=== PATIENT | male | born 1955 | race Caucasian/White ===

== ENCOUNTER 2023-05-31 13:53 | Observation (INO) ==
[~2023-05-31 13:53] MED LIST: NS IRRIGATION* 3,000 ML ONE
--- NOTE | 2023-05-31 15:46 | DR.GENAD ---
HPI Time Seen Time Seen by Provider: 05/31/23 15:44 Complaint/Symptoms Chief Complaint Doctors Comments: Patient stated that he had had some right upper quadrant pain and his primary care provider in [place] had him to get ultrasound of his right upper quadrant today and was found to have Lizbeth lithia sis and cholecystitis and was told to come to the emergency room for further evaluation treatment PMH PMH Past Medical History: Hypertension Past Surgical History: Yes Surgical History: Joint Replacement Family History Family Medical History: Hypertension Social History Do you use any recreational Drugs:: No ROS Review of Systems Constitutional: Other (Right upper quadrant pain) Eyes: No Symptoms Reported ENTM: No Symptoms Reported Respiratoy: No Symptoms Reported Gastrointestinal/Abdominal: Abdominal Pain Genitourinary: No Symptoms Reported Neurological: No Symptoms Reported Musculoskeletal: No Symptoms Reported Integumentary: No Symptoms Reported Hematologic/Lymphatic: No Symptoms Reported Endocrine: No Symptoms Reported Psychiatric: No Symptoms Reported PE Vital Signs Vitals: Vital Signs Blood Pressure 119/67 Blood Pressure 120/71 Blood Pressure 133/82 Blood Pressure 111/59 General Limitations: No Limitations General Appearance: In Distress (mild distress) Head Head Exam: Normal Inspection, Atraumatic and Normocephalic Eyes Eye exam: Normal Appearance and PERRL ENT ENT Exam: Normal Exam, Normal Oropharynx and Normal External Ear Exam External Ear Exam: Normal External Inspection TM/Canal Exam: Bilateral: Normal Nose Exam: Normal Nose Exam Mouth Exam: Normal Inspection Throat Exam: Normal Inspection Neck Neck Exam: Normal Inspection Chest Chest Inspection: Normal Inspection and Symmetric Chest Wall Rise Respiratory Respiratory Exam: Normal Lung Sounds Bilat Respiratory Exam: Bilateral: Clear to Auscultation Cardiovascular Cardiovascular Exam: Regular Rate Abdominal Exam Abdominal Exam: Normal Inspection and Normal Bowel Sounds Abdominal Tenderness: RUQ Extremities Extremities Exam: Normal Inspection Back Back Exam: Normal Inspection Neurologic Neurological Exam: Alert, Oriented X3 and CN II-XII Intact Psychiatric Psychiatric Exam: Normal Affect and Normal Mood Skin Skin Exam: Warm, Dry and Intact MDM Differential Diagnosis Differential Diagnosis: Cholelithiasis, cholecystitis COURSE Treatment Treatment: Patient had ultrasound of the right upper quadrant today which showed cholelithiasis and cholecystitis. Advised by his primary care provider to go to the ER for further evaluation and treatment. We did call the on-call medical to [place] and he was aware that we had our also going to call Dr. Maria to admit this patient for possible cholecystectomy. We were able to contact Dr. Stapleton and 2021 and he states we could contact Dr. Maria and we were able to contact Dr. Maria at 2054 and he stated to help Dr. Stapleton monitor the patient and make the patient n.p.o. give him Zosyn 3.375 mg IV and make him n.p.o. Dr. Maria will see the patient in the a.m. The patient was made aware of the intent and was agreeable to the intent. [facility]OR Labs Reviewed Laboratory Results Reviewed?: Yes 05/31/23 16:13 05/31/23 16:13 Laboratory: WBC 9.1 X10^3/uL (3.6-10.0) 05/31/23 16:13 RBC 4.02 X10^6/uL (4.7-6.0) L 05/31/23 16:13 Hgb 12.0 g/dL (13.5-18.0) L 05/31/23 16:13 Hct 35.5 % (42.0-54.0) L 05/31/23 16:13 MCV 88.5 fL (80.0-100.0) 05/31/23 16:13 MCH 29.9 pg (27.0-34.0) 05/31/23 16:13 MCHC 33.8 g/dL (33.0-35.0) 05/31/23 16:13 RDW 13.4 % (11.6-16.5) 05/31/23 16:13 Plt Count 355 X10^3/uL (150.0-450.0) 05/31/23 16:13 MPV 7.4 fL (7.4-11.0) 05/31/23 16:13 Neut % (Auto) 60.0 % (42.0-75.0) 05/31/23 16:13 Lymph % (Auto) 26.7 % (21.0-51.0) 05/31/23 16:13 [place] % (Auto) 11.7 % (0.0-13.0) 05/31/23 16:13 Eos % (Auto) 0.6 % (0.9-2.9) L 05/31/23 16:13 Baso % (Auto) 1.0 % (0.2-1.0) 05/31/23 16:13 Neut # (Auto) 5.5 x10^3/uL (2.2-4.8) H 05/31/23 16:13 Lymph # (Auto) 2.4 X10^3/uL (1.3-2.9) 05/31/23 16:13 [place] # (Auto) 1.1 x10^3/uL (0.3-0.8) H 05/31/23 16:13 Eos # (Auto) 0.1 x10^3/uL (0.0-0.2) 05/31/23 16:13 Baso # (Auto) 0.1 X10^3/uL (0.0-0.1) 05/31/23 16:13 Absolute Nucleated RBC 0.1 /100WBC 05/31/23 16:13 Sodium 132 mmol/L (136-145) L 05/31/23 16:13 Corrected Sodium TNP 05/31/23 16:13 Potassium 3.0 mmol/L (3.5-5.1) L 05/31/23 16:13 Chloride 96 mmol/L (98-107) L 05/31/23 16:13 Carbon Dioxide 30.8 mmol/L (21-32) 05/31/23 16:13 BUN 18 mg/dL (7-18) 05/31/23 16:13 Creatinine 1.37 mg/dL (0.70-1.30) H 05/31/23 16:13 Est GFR (MDRD) Af Amer > 60 (>60) 05/31/23 16:13 Est GFR (MDRD) Non-Af 55 (>60) L 05/31/23 16:13 Glucose 93 mg/dL (65-99) 05/31/23 16:13 Calcium 8.3 mg/dL (8.5-10.1) L 05/31/23 16:13 Corrected Calcium 9.7 mg/dL (8.5-10.1) 05/31/23 16:13 Total Bilirubin 0.50 mg/dL (0.2-1.0) 05/31/23 16:13 AST 43 Units/L (15-37) H 05/31/23 16:13 ALT 71 Units/L (12-78) 05/31/23 16:13 Alkaline Phosphatase 223 Units/L (46-116) H 05/31/23 16:13 Total Protein 7.0 g/dL (6.4-8.2) 05/31/23 16:13 Albumin 2.3 g/dL (3.4-5.0) L 05/31/23 16:13 Globulin 4.7 g/dL (2.5-4.5) H 05/31/23 16:13 Albumin/Globulin Ratio 0.5 Ratio (1.1-2.1) L 05/31/23 16:13 Amylase 280 Units/L (25-115) H 05/31/23 16:13 Lipase 658 Units/L (16-77) H 05/31/23 16:13 Specimen Type Clean catch urine 05/31/23 15:27 Urine Color Yellow (YELLOW) 05/31/23 15:27 Urine Appearance Clear (CLEAR) 05/31/23 15:27 Urine pH 6.0 (5.0 - 8.0) 05/31/23 15:27 Ur Specific [place] 1.020 (1.000-1.030) 05/31/23 15:27 Urine Protein 2+ (NEGATIVE) 05/31/23 15:27 Urine Glucose (UA) Negative (NEGATIVE) 05/31/23 15:27 Urine Ketones Negative (NEGATIVE) 05/31/23 15:27 Urine Blood Negative (NEGATIVE) 05/31/23 15:27 Urine Nitrite Negative (NEGATIVE) 05/31/23 15:27 Urine Bilirubin Negative (NEGATIVE) 05/31/23 15:27 Urine Urobilinogen Normal (NORMAL) 05/31/23 15:27 Ur Leukocyte Esterase Negative (NEGATIVE) 05/31/23 15:27 Urine RBC 0-2 /HPF (0-3) 05/31/23 15:27 Urine WBC 0-2 /HPF (0-5) 05/31/23 15:27 Ur Squamous Epith Cells Rare /HPF (NEGATIVE) 05/31/23 15:27 Urine Bacteria 1+ /HPF (NEGATIVE) 05/31/23 15:27 Urine Mucus Numerous /HPF (NEGATIVE) 05/31/23 15:27 Ur Culture Indicated? No/not indicated 05/31/23 15:27 Opioid Opioid Risk Tool Age (David box if 16-45): No History of Preadolescent Sexual Abuse: No Total: 0 Total Score Risk Category: Low Risk Copyright: Truman BLACK predicting aberrant behaviors Discharge Plan Diagnosis Discharge Problem: Acute cholecystitis, Cholelithiasis Discharge Plan Patient Disposition: ADMITTED INPATIENT Condition: Stable Prescriptions: No Action lisinopril 20 mg tablet 20 mg PO BID Health Concerns: Post Hospitalization: new medications and changes needed to prevent readmission or further decline. Pt educated and given instructions on all concerns. Plan of Treatment: Continue with present treatment and follow up plan. Pt is to keep follow up appointment as instructed and take medications as ordered. Orders to Discharge Patient Discharge Orders: Transfer (Routine); Ordered 05/31/23 Ordered By: Javon Brooke Follow ups/Referrals Follow ups/Referrals: JAEL GASTON [Primary Care Provider] - 3 days Instructions Stand Alone Forms: Post Hospital Follow Up Care
[2023-05-31 16:06] LABS: BILIRUBIN,URINE NEGATIVE (NEGATIVE); BLOOD/HEMOGLOBIN,URINE NEGATIVE (NEGATIVE); GLUCOSE, URINE NEGATIVE (NEGATIVE); KETONES,URINE NEGATIVE (NEGATIVE); LEUKOCYTE ESTERASE ,URINE NEGATIVE (NEGATIVE); NITRITES,URINE NEGATIVE (NEGATIVE); PROTEIN,URINE 2+ (NEGATIVE); UROBILINOGEN,URINE NORMAL (NORMAL)
[2023-05-31 16:08] LABS: COLOR,URINE YELLOW (YELLOW)
[2023-05-31 16:09] LABS: APPEARANCE,URINE CLEAR (CLEAR)
[2023-05-31 16:21] LABS: BACTERIA,URINE 1+ /HPF (NEGATIVE); RBC,URINE 0-2 /HPF (0-3); SQUAMOUS EPITHELIAL CELL,UR RARE /HPF (NEGATIVE)
[2023-05-31 16:24] LABS: BASOPHILS # (AUTO) 0.1 X10^3/uL (0.0-0.1); EOSINOPHILS # (AUTO) 0.1 x10^3/uL (0.0-0.2); EOSINOPHILS % (AUTO) 0.6 % (0.9-2.9); HEMATOCRIT 35.5 % (42.0-54.0); LYMPHOCYTES # (AUTO) 2.4 X10^3/uL (1.3-2.9); LYMPHOCYTES % (AUTO) 26.7 % (21.0-51.0); MEAN CORPUSCULAR HEMOGLOBIN 29.9 pg (27.0-34.0); MEAN CORPUSCULAR HGB CONC 33.8 g/dL (33.0-35.0); MEAN CORPUSCULAR VOLUME 88.5 fL (80.0-100.0); MEAN PLATELET VOLUME 7.4 fL (7.4-11.0); MONOCYTES # (AUTO) 1.1 x10^3/uL (0.3-0.8); MONOCYTES % (AUTO) 11.7 % (0.0-13.0); NEUTROPHILS # (AUTO) 5.5 x10^3/uL (2.2-4.8); PLATELET COUNT 355 X10^3/uL (150.0-450.0); RED BLOOD COUNT 4.02 X10^6/uL (4.7-6.0); RED CELL DISTRIBUTION WIDTH 13.4 % (11.6-16.5); WHITE BLOOD COUNT 9.1 X10^3/uL (3.6-10.0)
[2023-05-31 16:37] LABS: ALANINE AMINOTRANSFERASE 71 Units/L (12-78); ALBUMIN 2.3 g/dL (3.4-5.0); ALKALINE PHOSPHATASE 223 Units/L (46-116); AMYLASE 280 Units/L (25-115); ASPARTATE AMINO TRANSFERASE 43 Units/L (15-37); BLOOD UREA NITROGEN 18 mg/dL (7-18); CALCIUM 8.3 mg/dL (8.5-10.1); CARBON DIOXIDE 30.8 mmol/L (21-32); CHLORIDE 96 mmol/L (98-107); COR CA(FOR HYPOALB) 9.7 mg/dL (8.5-10.1); CREATININE 1.37 mg/dL (0.70-1.30); GLUCOSE 93 mg/dL (65-99); SODIUM 132 mmol/L (136-145); eGFR NON BLACK RACES 55 (>60)
[2023-05-31 16:48] LABS: LIPASE 658 Units/L (16-77)
[2023-05-31] MEDS ORDERED: NS 100 ML IV 100 ML ONE (21:23)
[2023-05-31] MEDS ORDERED: ZOSYN VIAL 3.375 GRAMS IV ONE (21:23)
[2023-05-31] MEDS: ZOSYN VIAL 3.375 GRAMS 3.375 G in NS 100 ML IV 100 ML IV ONE (21:50)
[2023-05-31] MEDS: ZOSYN VIAL 3.375 GRAMS 3.375 G in NS 100 ML IV 100 ML IV SCH (21:51)
[2023-06-01 00:43] VITALS: BMI 23.6
[2023-06-01] MEDS: ZOSYN VIAL 3.375 GRAMS 3.375 G in NS 100 ML IV 100 ML IV SCH (05:11)
[2023-06-01 06:11] LABS: BASOPHILS % (AUTO) 0.5 % (0.2-1.0); EOSINOPHILS # (AUTO) 0.1 x10^3/uL (0.0-0.2); EOSINOPHILS % (AUTO) 0.7 % (0.9-2.9); HEMATOCRIT 35.1 % (42.0-54.0); HEMOGLOBIN 11.8 g/dL (13.5-18.0); LYMPHOCYTES # (AUTO) 1.3 X10^3/uL (1.3-2.9); LYMPHOCYTES % (AUTO) 15.1 % (21.0-51.0); MEAN CORPUSCULAR HEMOGLOBIN 29.4 pg (27.0-34.0); MEAN CORPUSCULAR HGB CONC 33.5 g/dL (33.0-35.0); MEAN CORPUSCULAR VOLUME 87.8 fL (80.0-100.0); MEAN PLATELET VOLUME 7.8 fL (7.4-11.0); MONOCYTES # (AUTO) 0.9 x10^3/uL (0.3-0.8); MONOCYTES % (AUTO) 10.6 % (0.0-13.0); NEUTROPHILS # (AUTO) 6.3 x10^3/uL (2.2-4.8); NEUTROPHILS % (AUTO) 73.1 % (42.0-75.0); PLATELET COUNT 389 X10^3/uL (150.0-450.0); RED CELL DISTRIBUTION WIDTH 13.1 % (11.6-16.5); WHITE BLOOD COUNT 8.7 X10^3/uL (3.6-10.0)
[2023-06-01 06:25] LABS: ALANINE AMINOTRANSFERASE 59 Units/L (12-78); ALBUMIN 2.2 g/dL (3.4-5.0); ALKALINE PHOSPHATASE 200 Units/L (46-116); ASPARTATE AMINO TRANSFERASE 30 Units/L (15-37); BLOOD UREA NITROGEN 16 mg/dL (7-18); CALCIUM 8.5 mg/dL (8.5-10.1); CARBON DIOXIDE 31.8 mmol/L (21-32); CHLORIDE 98 mmol/L (98-107); COR CA(FOR HYPOALB) 9.9 mg/dL (8.5-10.1); GLUCOSE 87 mg/dL (65-99); POTASSIUM 3.1 mmol/L (3.5-5.1); SODIUM 133 mmol/L (136-145); TOTAL PROTEIN 6.6 g/dL (6.4-8.2); eGFR NON BLACK RACES 58 (>60)
[2023-06-01 06:48] LABS: AMYLASE 242 Units/L (25-115)
[2023-06-01 06:49] LABS: LIPASE 469 Units/L (16-77)
--- NOTE | 2023-06-01 07:31 | EKG ---
Test Reason : preop Blood Pressure : */* mmHG Vent. Rate : 64 BPM Atrial Rate : 64 BPM P-R Int : 166 ms QRS Dur : 88 ms QT Int : 430 ms P-R-T Axes : 61 46 27 degrees QTc Int : 443 ms Normal sinus rhythm Normal ECG No previous ECGs available Confirmed by Kaiser Coreas ([id number]) on 06/01/2023 10:39:07 AM Referred By: Confirmed By: Kaiser Coreas
[2023-06-01] MEDS: PROTONIX INJ 40 MG VIAL IVP SCH (08:12)
--- NOTE | 2023-06-01 08:18 | RAD ---
EXAM:CHEST, 1 VIEWHISTORY:PRE-OP CHOLECYSTECTOMY; HX: HTNCOMPARISON:None.FINDINGS:Cardiomedias tinal silhouette within normal limits. No focal consolidation, pulmonary edema, sizeable pleural effusion, or visible pneumothorax. No acute osseous finding.IMPRESSION:No acute appearing finding.THIS IS AN ELECTRONICALLY VERIFIED FINAL REPORT06/01/2023 8:15 AM - Electronically signed by Jose Luis Wylie MD
[2023-06-01] MEDS: NS 100 ML IV 100 ML ONE (09:02)
[2023-06-01] MEDS: ANCEF VIAL 1 GRAM ONE (09:02)
[2023-06-01] MEDS: LR 1,000 ML IV 1,000 ML IV ONE (09:02)
[2023-06-01] MEDS: DILAUDID INJ ONE ×2 (09:12→18:14)
[2023-06-01] MEDS: ZOFRAN INJ 4 MG VIAL ONE (09:12)
[2023-06-01] MEDS: QUELICIN (OR ANECTINE) ONE (09:12)
[2023-06-01] MEDS: PEPCID 20 MG VIAL ONE (09:12)
[2023-06-01] MEDS: ZEMURON 100 MG VIAL ONE (09:12)
[2023-06-01] MEDS: DIPRIVAN VIAL 20 ML ONE (09:12)
[2023-06-01] MEDS: VERSED ONE (09:12)
[2023-06-01] MEDS: DECADRON INJ ONE (09:12)
[2023-06-01] MEDS: ROBINUL ONE (09:12)
[2023-06-01] MEDS ORDERED: SUPRANE ONE (09:15)
[2023-06-01] MEDS: BACTROBAN TOPICAL OINT ONE (10:01)
[2023-06-01] MEDS: LEVAQUIN PREMIX IV 500 MG 500 MG/100 ML BAG IV ONE (10:45)
[2023-06-01] MEDS: MAGNESIUM SULFATE 1 GRAM/100 mL PREMIX 1 G/100 ML BAG IV NR (10:47)
[2023-06-01] MEDS ORDERED: BENADRYL INJ 50 MG VIAL IVP PRN (11:23)
[2023-06-01] MEDS ORDERED: BARHEMSYS INJ IVP PRN (11:23)
[2023-06-01] MEDS ORDERED: REGLAN INJ 10 MG VIAL IVP PRN (11:23)
[2023-06-01] MEDS ORDERED: ZOFRAN INJ 4 MG VIAL IVP PRN (11:23)
[2023-06-01] MEDS: DILAUDID INJ IVP PRN ×2 (11:26→14:54)
[2023-06-01] MEDS: D5 1/2 NS 1,000 ML 1,000 ML IV SCH (12:05)
[2023-06-01] MEDS: FLAGYL IV PREMIX 500 MG BAG 500 MG/100 ML BAG IV SCH (15:11)
[2023-06-01] MEDS: BRIDION ONE (18:14)
[2023-06-02 05:08] LABS: BASOPHILS % (AUTO) 0.3 % (0.2-1.0); EOSINOPHILS % (AUTO) 0.1 % (0.9-2.9); HEMATOCRIT 32.1 % (42.0-54.0); HEMOGLOBIN 10.7 g/dL (13.5-18.0); LYMPHOCYTES # (AUTO) 1.3 X10^3/uL (1.3-2.9); LYMPHOCYTES % (AUTO) 10.4 % (21.0-51.0); MEAN CORPUSCULAR HEMOGLOBIN 29.3 pg (27.0-34.0); MEAN CORPUSCULAR HGB CONC 33.3 g/dL (33.0-35.0); MEAN CORPUSCULAR VOLUME 88.1 fL (80.0-100.0); MEAN PLATELET VOLUME 7.7 fL (7.4-11.0); MONOCYTES % (AUTO) 8.5 % (0.0-13.0); NEUTROPHILS # (AUTO) 9.7 x10^3/uL (2.2-4.8); NEUTROPHILS % (AUTO) 80.7 % (42.0-75.0); PLATELET COUNT 386 X10^3/uL (150.0-450.0); RED BLOOD COUNT 3.64 X10^6/uL (4.7-6.0); RED CELL DISTRIBUTION WIDTH 12.9 % (11.6-16.5)
[2023-06-02 05:34] LABS: ALANINE AMINOTRANSFERASE 43 Units/L (12-78); ALKALINE PHOSPHATASE 155 Units/L (46-116); AMYLASE 150 Units/L (25-115); ASPARTATE AMINO TRANSFERASE 18 Units/L (15-37); BLOOD UREA NITROGEN 14 mg/dL (7-18); CALCIUM 8.1 mg/dL (8.5-10.1); CARBON DIOXIDE 28.8 mmol/L (21-32); CHLORIDE 100 mmol/L (98-107); COR CA(FOR HYPOALB) 9.7 mg/dL (8.5-10.1); COR NA(FOR HYPERGLY) 138 mmol/L (136-145); CREATININE 1.34 mg/dL (0.70-1.30); GLUCOSE 112 mg/dL (65-99); LIPASE 177 Units/L (16-77); POTASSIUM 3.1 mmol/L (3.5-5.1); SODIUM 138 mmol/L (136-145); TOTAL PROTEIN 6.1 g/dL (6.4-8.2); eGFR NON BLACK RACES 56 (>60)
[2023-06-02] MEDS ORDERED: CONSULT PHARMACY - POTASSIUM & MAGNESIUM XX SCH (07:00)
[2023-06-02] MEDS: NS + KCL 20 MEQ/L 1,000 ML IV SCH ×2 (07:40)
[2023-06-02] MEDS: K-DUR TAB 20 MEQ PO SCH (08:35)
[2023-06-02] MEDS: LEVAQUIN PREMIX IV 500 MG 500 MG/100 ML BAG IV SCH (08:35)
--- NOTE | 2023-06-02 09:22 | DR.PROGNOT ---
HOSPITAL PROGRESS NOTE Progress Note for Day of: Progress Note Date: 06/02/23 Chief Complaint Chief Complaint: feeling better today .. moderate drainage in YANA. Amylase,Lipase are down .. K 3.1 WBC 12. afebrile . to advance diet . Past Medical Family Social History Allergies: Allergies No Known Drug Allergies Allergy (Verified 05/21/23 08:16) Vital Signs Vital Signs: Vital Signs Temperature 97.8 F Temperature 97.8 F Pulse Rate [Left Radial] 53 Pulse Rate [Left Radial] 59 Respiratory Rate 20 Respiratory Rate 20 Respiratory Rate 16 Respiratory Rate 16 Blood Pressure [Left Arm] 118/67 Blood Pressure [Left Arm] 102/59 O2 Sat by Pulse Oximetry 100 O2 Sat by Pulse Oximetry 97 Physical Exam Oriented: Normal Eyes: Normal Nose: Normal Throat: Normal Respiratory: Normal Cardiovascular: Normal GI:Auscultation: Normal GI:Palpation: Other (soft,flat abdomen .. BS+) Mood Description: Calm Speech Pattern: Clear Laboratory and Diagnostics 06/02/23 04:16 06/02/23 04:16 Labs: Laboratory WBC 12.0 X10^3/uL (3.6-10.0) H 06/02/23 04:16 RBC 3.64 X10^6/uL (4.7-6.0) L 06/02/23 04:16 Hgb 10.7 g/dL (13.5-18.0) L 06/02/23 04:16 Hct 32.1 % (42.0-54.0) L 06/02/23 04:16 MCV 88.1 fL (80.0-100.0) 06/02/23 04:16 MCH 29.3 pg (27.0-34.0) 06/02/23 04:16 MCHC 33.3 g/dL (33.0-35.0) 06/02/23 04:16 RDW 12.9 % (11.6-16.5) 06/02/23 04:16 Plt Count 386 X10^3/uL (150.0-450.0) 06/02/23 04:16 MPV 7.7 fL (7.4-11.0) 06/02/23 04:16 Neut % (Auto) 80.7 % (42.0-75.0) H 06/02/23 04:16 Lymph % (Auto) 10.4 % (21.0-51.0) L 06/02/23 04:16 [place] % (Auto) 8.5 % (0.0-13.0) 06/02/23 04:16 Eos % (Auto) 0.1 % (0.9-2.9) L 06/02/23 04:16 Baso % (Auto) 0.3 % (0.2-1.0) 06/02/23 04:16 Neut # (Auto) 9.7 x10^3/uL (2.2-4.8) H 06/02/23 04:16 Lymph # (Auto) 1.3 X10^3/uL (1.3-2.9) 06/02/23 04:16 [place] # (Auto) 1.0 x10^3/uL (0.3-0.8) H 06/02/23 04:16 Eos # (Auto) 0.0 x10^3/uL (0.0-0.2) 06/02/23 04:16 Baso # (Auto) 0.0 X10^3/uL (0.0-0.1) 06/02/23 04:16 Absolute Nucleated RBC 0.0 /100WBC 06/02/23 04:16 Sodium 138 mmol/L (136-145) 06/02/23 04:16 Corrected Sodium 138 mmol/L (136-145) 06/02/23 04:16 Potassium 3.1 mmol/L (3.5-5.1) L 06/02/23 04:16 Chloride 100 mmol/L (98-107) 06/02/23 04:16 Carbon Dioxide 28.8 mmol/L (21-32) 06/02/23 04:16 BUN 14 mg/dL (7-18) 06/02/23 04:16 Creatinine 1.34 mg/dL (0.70-1.30) H 06/02/23 04:16 Est GFR (MDRD) Af Amer > 60 (>60) 06/02/23 04:16 Est GFR (MDRD) Non-Af 56 (>60) L 06/02/23 04:16 Glucose 112 mg/dL (65-99) H 06/02/23 04:16 Calcium 8.1 mg/dL (8.5-10.1) L 06/02/23 04:16 Corrected Calcium 9.7 mg/dL (8.5-10.1) 06/02/23 04:16 Magnesium 2.0 mg/dL (2.0-2.9) 06/02/23 04:16 Total Bilirubin 0.30 mg/dL (0.2-1.0) 06/02/23 04:16 AST 18 Units/L (15-37) 06/02/23 04:16 ALT 43 Units/L (12-78) 06/02/23 04:16 Alkaline Phosphatase 155 Units/L (46-116) H 06/02/23 04:16 Total Protein 6.1 g/dL (6.4-8.2) L 06/02/23 04:16 Albumin 2.0 g/dL (3.4-5.0) L 06/02/23 04:16 Globulin 4.1 g/dL (2.5-4.5) 06/02/23 04:16 Albumin/Globulin Ratio 0.5 Ratio (1.1-2.1) L 06/02/23 04:16 Amylase 150 Units/L (25-115) H 06/02/23 04:16 Lipase 177 Units/L (16-77) H 06/02/23 04:16 Specimen Type Clean catch urine 05/31/23 15:27 Urine Color Yellow (YELLOW) 05/31/23 15:27 Urine Appearance Clear (CLEAR) 05/31/23 15:27 Urine pH 6.0 (5.0 - 8.0) 05/31/23 15:27 Ur Specific [place] 1.020 (1.000-1.030) 05/31/23 15:27 Urine Protein 2+ (NEGATIVE) 05/31/23 15:27 Urine Glucose (UA) Negative (NEGATIVE) 05/31/23 15:27 Urine Ketones Negative (NEGATIVE) 05/31/23 15: Urine Blood Negative (NEGATIVE) 05/31/23 15: Urine Nitrite Negative (NEGATIVE) 05/31/23 15:27 Urine Bilirubin Negative (NEGATIVE) 05/31/23 15:27 Urine Urobilinogen Normal (NORMAL) 05/31/23 15:27 Ur Leukocyte Esterase Negative (NEGATIVE) 05/31/23 15:27 Urine RBC 0-2 /HPF (0-3) 05/31/23 15:27 Urine WBC 0-2 /HPF (0-5) 05/31/23 15:27 Ur Squamous Epith Cells Rare /HPF (NEGATIVE) 05/31/23 15:27 Urine Bacteria 1+ /HPF (NEGATIVE) 05/31/23 15:27 Urine Mucus Numerous /HPF (NEGATIVE) 05/31/23 15:27 Ur Culture Indicated? No/not indicated 05/31/23 15:27 Assessment and Plan 1: s/p partial lap rebecca and cystostomy , drainage . to advance diet . DVT prophylaxis , incentive spirometer 2: pancreatitis . on IV ABT and IVF Problem Patient Problems: Patient Problems Acute cholecystitis (Acute) K81.0 Cholelithiasis (Acute) K80.20
[2023-06-02] MEDS: ULTRAM PO PRN (12:27)
[2023-06-03 04:49] LABS: BASOPHILS % (AUTO) 0.6 % (0.2-1.0); EOSINOPHILS % (AUTO) 0.5 % (0.9-2.9); HEMATOCRIT 31.2 % (42.0-54.0); HEMOGLOBIN 10.4 g/dL (13.5-18.0); LYMPHOCYTES # (AUTO) 1.8 X10^3/uL (1.3-2.9); LYMPHOCYTES % (AUTO) 25.3 % (21.0-51.0); MEAN CORPUSCULAR HEMOGLOBIN 29.6 pg (27.0-34.0); MEAN CORPUSCULAR HGB CONC 33.4 g/dL (33.0-35.0); MEAN CORPUSCULAR VOLUME 88.5 fL (80.0-100.0); MEAN PLATELET VOLUME 7.6 fL (7.4-11.0); MONOCYTES % (AUTO) 13.7 % (0.0-13.0); NEUTROPHILS # (AUTO) 4.4 x10^3/uL (2.2-4.8); NEUTROPHILS % (AUTO) 59.9 % (42.0-75.0); PLATELET COUNT 334 X10^3/uL (150.0-450.0); RED BLOOD COUNT 3.52 X10^6/uL (4.7-6.0); RED CELL DISTRIBUTION WIDTH 13.4 % (11.6-16.5); WHITE BLOOD COUNT 7.3 X10^3/uL (3.6-10.0)
[2023-06-03 04:52] VITALS: RESP 20
[2023-06-03 05:00] LABS: ALANINE AMINOTRANSFERASE 28 Units/L (12-78); ALBUMIN 1.8 g/dL (3.4-5.0); ALKALINE PHOSPHATASE 126 Units/L (46-116); ASPARTATE AMINO TRANSFERASE 12 Units/L (15-37); BLOOD UREA NITROGEN 10 mg/dL (7-18); CALCIUM 7.6 mg/dL (8.5-10.1); CHLORIDE 106 mmol/L (98-107); COR CA(FOR HYPOALB) 9.4 mg/dL (8.5-10.1); CREATININE 1.29 mg/dL (0.70-1.30); GLUCOSE 91 mg/dL (65-99); POTASSIUM 3.6 mmol/L (3.5-5.1); SODIUM 139 mmol/L (136-145); TOTAL PROTEIN 5.5 g/dL (6.4-8.2); eGFR NON BLACK RACES 59 (>60)
[2023-06-03] MEDS ORDERED: CONSULT PHARMACY - POTASSIUM & MAGNESIUM XX SCH (06:00)
--- NOTE | 2023-06-03 08:28 | DR.PROGNOT ---
HOSPITAL PROGRESS NOTE Progress Note for Day of: Progress Note Date: 06/03/23 Chief Complaint Chief Complaint: feeling better today .. moderate bile in YANA. WBC 7.3... Alk Phos 126 .. Bilirubin normal .. afebrile . Past Medical Family Social History Allergies: Allergies No Known Drug Allergies Allergy (Verified 05/21/23 08:16) Vital Signs Vital Signs: Vital Signs Temperature 97.9 F Temperature 97.9 F Pulse Rate [Left Radial] 64 Pulse Rate [Left Radial] 64 Respiratory Rate 20 Respiratory Rate 20 Blood Pressure [Left Arm] 124/72 Blood Pressure [Left Arm] 124/72 O2 Sat by Pulse Oximetry 96 O2 Sat by Pulse Oximetry 96 Physical Exam Oriented: Normal Eyes: Normal Nose: Normal Throat: Normal Respiratory: Normal Cardiovascular: Normal GI:Auscultation: Normal GI:Palpation: Other (soft,flat abdomen .. BS+) Mood Description: Calm Speech Pattern: Clear Laboratory and Diagnostics 06/03/23 04:10 06/03/23 04:10 Labs: Laboratory WBC 7.3 X10^3/uL (3.6-10.0) 06/03/23 04:10 RBC 3.52 X10^6/uL (4.7-6.0) L 06/03/23 04:10 Hgb 10.4 g/dL (13.5-18.0) L 06/03/23 04:10 Hct 31.2 % (42.0-54.0) L 06/03/23 04:10 MCV 88.5 fL (80.0-100.0) 06/03/23 04:10 MCH 29.6 pg (27.0-34.0) 06/03/23 04:10 MCHC 33.4 g/dL (33.0-35.0) 06/03/23 04:10 RDW 13.4 % (11.6-16.5) 06/03/23 04:10 Plt Count 334 X10^3/uL (150.0-450.0) 06/03/23 04:10 MPV 7.6 fL (7.4-11.0) 06/03/23 04:10 Neut % (Auto) 59.9 % (42.0-75.0) 06/03/23 04:10 Lymph % (Auto) 25.3 % (21.0-51.0) 06/03/23 04:10 Day % (Auto) 13.7 % (0.0-13.0) H 06/03/23 04:10 Eos % (Auto) 0.5 % (0.9-2.9) L 06/03/23 04:10 Baso % (Auto) 0.6 % (0.2-1.0) 06/03/23 04:10 Neut # (Auto) 4.4 x10^3/uL (2.2-4.8) 06/03/23 04:10 Lymph # (Auto) 1.8 X10^3/uL (1.3-2.9) 06/03/23 04:10 Day # (Auto) 1.0 x10^3/uL (0.3-0.8) H 06/03/23 04:10 Eos # (Auto) 0.0 x10^3/uL (0.0-0.2) 06/03/23 04:10 Baso # (Auto) 0.0 X10^3/uL (0.0-0.1) 06/03/23 04:10 Absolute Nucleated RBC 0.1 /100WBC 06/03/23 04:10 Sodium 139 mmol/L (136-145) 06/03/23 04:10 Corrected Sodium TNP 06/03/23 04:10 Potassium 3.6 mmol/L (3.5-5.1) 06/03/23 04:10 Chloride 106 mmol/L (98-107) 06/03/23 04:10 Carbon Dioxide 27.0 mmol/L (21-32) 06/03/23 04:10 BUN 10 mg/dL (7-18) 06/03/23 04:10 Creatinine 1.29 mg/dL (0.70-1.30) 06/03/23 04:10 Est GFR (MDRD) Af Amer > 60 (>60) 06/03/23 04:10 Est GFR (MDRD) Non-Af 59 (>60) 06/03/23 04:10 Glucose 91 mg/dL (65-99) 06/03/23 04:10 Calcium 7.6 mg/dL (8.5-10.1) L 06/03/23 04:10 Corrected Calcium 9.4 mg/dL (8.5-10.1) 06/03/23 04:10 Magnesium 1.6 mg/dL (2.0-2.9) L 06/03/23 04:10 Total Bilirubin 0.30 mg/dL (0.2-1.0) 06/03/23 04:10 AST 12 Units/L (15-37) L 06/03/23 04:10 ALT 28 Units/L (12-78) 06/03/23 04:10 Alkaline Phosphatase 126 Units/L (46-116) H 06/03/23 04:10 Total Protein 5.5 g/dL (6.4-8.2) L 06/03/23 04:10 Albumin 1.8 g/dL (3.4-5.0) L 06/03/23 04:10 Globulin 3.7 g/dL (2.5-4.5) 06/03/23 04:10 Albumin/Globulin Ratio 0.5 Ratio (1.1-2.1) L 06/03/23 04:10 Amylase 150 Units/L (25-115) H 06/02/23 04:16 Lipase 177 Units/L (16-77) H 06/02/23 04:16 Specimen Type Clean catch urine 05/31/23 15:27 Urine Color Yellow (YELLOW) 05/31/23 15: Urine Appearance Clear (CLEAR) 05/31/23 15:27 Urine pH 6.0 (5.0 - 8.0) 05/31/23 15:27 Ur Specific [place] 1.020 (1.000-1.030) 05/31/23 15:27 Urine Protein 2+ (NEGATIVE) 05/31/23 15:27 Urine Glucose (UA) Negative (NEGATIVE) 05/31/23 15: Urine Ketones Negative (NEGATIVE) 05/31/23 15: Urine Blood Negative (NEGATIVE) 05/31/23 15: Urine Nitrite Negative (NEGATIVE) 05/31/23 15: Urine Bilirubin Negative (NEGATIVE) 05/31/23 15:27 Urine Urobilinogen Normal (NORMAL) 05/31/23 15:27 Ur Leukocyte Esterase Negative (NEGATIVE) 05/31/23 15:27 Urine RBC 0-2 /HPF (0-3) 05/31/23 15:27 Urine WBC 0-2 /HPF (0-5) 05/31/23 15:27 Ur Squamous Epith Cells Rare /HPF (NEGATIVE) 05/31/23 15:27 Urine Bacteria 1+ /HPF (NEGATIVE) 05/31/23 15:27 Urine Mucus Numerous /HPF (NEGATIVE) 05/31/23 15:27 Ur Culture Indicated? No/not indicated 05/31/23 15:27 Assessment and Plan 1: s/p partial lap rebecca and cystostomy , drainage . to advance diet . DVT prophylaxis , incentive spirometer 2: subsided pancreatitis . on IV ABT and IVF .. to follow in one week . visiting nurse . Problem Patient Problems: Patient Problems Acute cholecystitis (Acute) K81.0 Cholelithiasis (Acute) K80.20
[2023-06-03] MEDS: K-DUR TAB 20 MEQ PO SCH (08:39)
[2023-06-03 12:04] VITALS: BP 139/79; PULSE 86; TEMP 98.1; O2SAT 97
== END 2023-06-03 12:25 | disposition home or self-care (01) ==
LOC: ER 13:53 → MED/SURG 13:53
PROVIDERS: ADMIT Internal Medicine; ATTEND Internal Medicine
DX: R10.31 Right lower quadrant pain; K80.80 Other cholelithiasis without obstruction; E87.1 Hypo-osmolality and hyponatremia; E87.6 Hypokalemia; I10 Essential (primary) hypertension; K82.8 Other specified diseases of gallbladder; K80.12 Calculus of gallbladder with acute and chronic cholecystitis without obstruction; E83.42 Hypomagnesemia; K85.10 Biliary acute pancreatitis without necrosis or infection